=== PATIENT | female | born 1955 ===

== ENCOUNTER → 2017-03-26 | Outpatient (CLI) | payer BC ==
--- NOTE | 2017-03-26 14:49 | MM ---
Reason for exam: clinical finding. Last mammogram was performed 1 year ago. History: Patient is postmenopausal. Benign excisional biopsy of the left breast, November 08, 2000. Taking estrogen for 2 years beginning at age 56. Taking progesterone for 2 years beginning at age 56. Indicated problem(s): pain in the right breast. Physical Findings: Nurse Summary: 2cm nodule in the right breast at 9 o'clock (nurse ashanti). MG 3D Diag Mammo W/Cad RANJANA Bilateral CC and MLO view(s) were taken. Prior study comparison: April 02, 2016, bilateral MG 3d diag mammo w/cad RANJANA. December 14, 2014, bilateral MG diagnostic mammo w CAD RANJANA. The breast tissue is heterogeneously dense. This may lower the sensitivity of mammography. There is no discrete abnormality. No abnormality at right marked BB. No significant new findings when compared with previous films. These results were verbally communicated with the patient and result sheet given to the patient on 03/26/17. ASSESSMENT: Benign, BI-RAD 2 RECOMMENDATION: Routine screening mammogram of both breasts in 1 year.
== END | disposition home or self-care (01) ==
LOC: RADMAMWWP 13:37
PROVIDERS: ATTEND Internal Medicine
DX: N64.4 Mastodynia (principal)
CPT/HCPCS: G0204; G0279

== ENCOUNTER → 2018-04-15 | Outpatient (CLI) | payer BC ==
--- NOTE | 2018-04-15 10:35 | MM ---
Reason for exam: screening (asymptomatic). Last mammogram was performed 1 year and 1 month ago. History: Patient is postmenopausal. Benign excisional biopsy of the left breast, November 08, 2000. Taking estrogen for 2 years beginning at age 56. Taking progesterone for 2 years beginning at age 56. Physical Findings: A clinical breast exam by your physician is recommended on an annual basis and results should be correlated with mammographic findings. MG 3D Screening Mammo W/Cad Bilateral CC and MLO view(s) were taken. Prior study comparison: March 26, 2017, bilateral MG 3d diag mammo w/cad RANJANA. April 02, 2016, bilateral MG 3d diag mammo w/cad RANJANA. The breast tissue is heterogeneously dense. This may lower the sensitivity of mammography. Stable benign calcifications. There is no discrete abnormality. No significant changes when compared with prior studies. ASSESSMENT: Benign, BI-RAD 2 RECOMMENDATION: Routine screening mammogram of both breasts in 1 year.
== END | disposition home or self-care (01) ==
LOC: RADMAMWWP 07:07
PROVIDERS: ATTEND Internal Medicine
DX: Z12.31 Encounter for screening mammogram for malignant neoplasm of breast (principal)
CPT/HCPCS: 77063; 77067

== ENCOUNTER → 2019-04-17 | Outpatient (CLI) | payer BC ==
--- NOTE | 2019-04-18 08:28 | MM ---
Reason for exam: additional evaluation requested from prior study. Last mammogram was performed 1 year ago. History: Patient is postmenopausal. Benign excisional biopsy of the left breast, November 08, 2000. Taking estrogen for 2 years beginning at age 56. Taking progesterone for 2 years beginning at age 56. Physical Findings: Nurse did not find any significant physical abnormalities on exam. MG 3D Diag Mammo W/Cad RANJANA Bilateral CC and MLO view(s) were taken. Prior study comparison: April 15, 2018, bilateral MG 3d screening mammo w/cad. March 26, 2017, bilateral MG 3d diag mammo w/cad RANJANA. The breast tissue is heterogeneously dense. This may lower the sensitivity of mammography. There is chronic nodularity bilaterally. Central nodularity on left CC unchanged from 2016 and 2017. Lateral asymmetry right CC view unchanged from 2017. These results were verbally communicated with the patient and result sheet given to the patient on 04/17/19. ASSESSMENT: Benign, BI-RAD 2 RECOMMENDATION: Follow-up diagnostic mammogram of both breasts in 1 year.
== END | disposition home or self-care (01) ==
LOC: RADMAMWWP 12:54
PROVIDERS: ATTEND Family Medicine
DX: N60.11 Diffuse cystic mastopathy of right breast (principal); N60.12 Diffuse cystic mastopathy of left breast
CPT/HCPCS: 77062; 77066

== ENCOUNTER → 2020-04-09 | Outpatient (CLI) | payer BC ==
--- NOTE | 2020-04-09 16:18 | CT ---
EXAMINATION TYPE: CT ChestAbdPelvis w con, CT abdomen pelvis wo con DATE OF EXAM: 04/09/2020 COMPARISON: None. HISTORY: pelvic mass, abnormal labs (accession [id number]), pelvic mass (accession [id number]) CT DLP: 605.8 (accession [id number]), 333.3 (accession [id number]) mGycm. Automated Exposure Control for Dose Reduction was Utilized. CONTRAST: CT abdomen and pelvis with oral but without IV contrast. CT scan of the thorax, abdomen and pelvis is performed with oral and with IV Contrast, patient inject ed with 100 mL of Isovue 300. FINDINGS: LUNGS: Mild biapical pleural/parenchymal scarring. Incidental 4 mm calcified nodule or granuloma righ t upper lobe laterally axial image 16 . No suspicious noncalcified pulmonary nodules or masses. Ther e is no pleural effusion or pneumothorax seen bilaterally. The tracheobronchial tree is patent. MEDIASTINUM: There are no greater than 1 cm hilar or mediastinal lymph nodes. No cardiomegaly or pe ricardial effusion is seen. There is fairly moderate coronary artery calcification. OTHER: No additional significant abnormality is seen. LIVER/GB: No significant abnormality is appreciated. PANCREAS: No significant abnormality is seen. SPLEEN: No significant abnormality is seen. ADRENALS: No significant abnormality is seen. KIDNEYS: Noncontrast images show no renal calculi bilaterally. Postcontrast images show symmetric cor d measuring uptake and excretion without concerning renal mass or hydronephrosis seen bilaterally. BOWEL: Oral contrast reaches level of distal ileal loops. No suspicious small large bowel dilatation. Some sigmoid colonic diverticula. GENITAL ORGANS: There is markedly enlarged slightly lobulated well-circumscribed pelvic mass that has areas of linear hypointensity. I would suspect uterus for patient states history of hysterectomy and there does appear to be distinct fat plane from the cervical remnant. Mass measures roughly 15 cm AP diameter by 12 cm transversely axial image 106 x 13 cm craniocaudal diameter. No calcifications are present. Significant local mass effect on the bladder and bowel loops is identified. No invasive or d estructive component. Small amount of free fluid right posterior pelvic region axial image 114. LYMPH NODES: No greater than 1cm abdominal or pelvic lymph nodes are appreciated. OSSEOUS STRUCTURES: Underlying scoliotic curvature. Moderate to severe disc space narrowing with endp late sclerosis lumbosacral junction. Facet arthropathy lower lumbar levels. Moderate narrowing in bot h hip joints. OTHER: No significant additional abnormality is seen. IMPRESSION: Heterogeneous well-circumscribed solid pelvic mass. Etiology uncertain given history of hysterectomy. Solid ovarian tumor needs to be considered. Benign etiology is not excluded because of size in local mass effect surgical excision is warranted. Correlation with tumor markers is advised. No metastatic disease is evident.
== END | disposition home or self-care (01) ==
LOC: RADCTMAIN 13:57
PROVIDERS: ATTEND Obstetrics & Gynecology
DX: R19.00 Intra-abdominal and pelvic swelling, mass and lump, unspecified site (principal); Z90.710 Acquired absence of both cervix and uterus
CPT/HCPCS: 71260; 74176; 74177; Q9967

== ENCOUNTER → 2020-05-07 | Outpatient (CLI) | payer BC ==
--- NOTE | 2020-05-08 09:11 | MM ---
Reason for exam: additional evaluation requested from prior study. Last mammogram was performed 1 year and 1 month ago. History: Patient is postmenopausal. Benign excisional biopsy of the left breast, November 08, 2000. Taking estrogen for 8 years beginning at age 56. Taking progesterone for 8 years beginning at age 56. Physical Findings: Nurse did not find any significant physical abnormalities on exam. MG 3D Diag Mammo W/Cad RANJANA Bilateral CC and MLO view(s) were taken. Prior study comparison: April 17, 2019, bilateral MG 3d diag mammo w/cad RANJANA. April 15, 2018, bilateral MG 3d screening mammo w/cad. The breast tissue is heterogeneously dense. This may lower the sensitivity of mammography. There is chronic nodularity bilaterally. There is no dominant lesion. There is no discrete abnormality. No significant changes when compared with prior studies. ASSESSMENT: Benign, BI-RAD 2 RECOMMENDATION: Routine screening mammogram of both breasts in 1 year.
== END | disposition home or self-care (01) ==
LOC: RADMAMWWP 14:43
PROVIDERS: ATTEND Family Medicine
DX: N60.11 Diffuse cystic mastopathy of right breast (principal); N60.12 Diffuse cystic mastopathy of left breast
CPT/HCPCS: 77062; 77066